=== PATIENT | male | born 1950 | race Caucasian/White ===

== ENCOUNTER 2022-04-18 11:44 | Emergency (ER) | payer MEDICARE, OTHER ==
[~2022-04-18] VITALS: Ht 167.6 cm; Wt 68.0 kg
[2022-04-18] MEDS ORDERED: IBUPROFEN 400MG TABLET PO ONE (12:30)
[2022-04-18] MEDS ORDERED: ACETAMINOPHEN 325MG TABLET PO ONE (12:30)
[2022-04-18 12:48] LABS: BASOPHILS % 1.4 % (0.0-2.0); EOSINOPHILS % 6.7 % (0.0-5.0); HEMATOCRIT. 45.2 % (42.0-52.0); LYMPHOCYTES % 16.1 % (20.0-50.0); MEAN CORPUSCULAR HEMOGLOBIN 28.8 pg (28.0-32.0); MEAN CORPUSCULAR VOLUME 86.5 fL (80.0-94.0); MEAN PLATELET VOLUME 7.6 fl (7.4-10.4); MONOCYTES % 14.9 % (2.0-8.0); NEUTROPHILS % 60.9 % (40.0-76.0); PLATELET 219 x1000/uL (130-400); RED BLOOD CELL COUNT 5.22 mill/uL (4.7-6.1); RED CELL DISTRIBUTION WIDTH 18.6 % (11.6-14.6)
[2022-04-18 12:56] LABS: CHLORIDE 102 mEq/L (98-107)
[2022-04-18] MEDS ORDERED: LORAZEPAM 0.5MG TABLET PO ONE (13:00)
[2022-04-18] MEDS ORDERED: LORA-249 MT (14:32)
[2022-04-18] MEDS ORDERED: AMPH20TA3 MT ×2 (14:44→15:18)
[2022-04-18 15:42] VITALS: BP 134/78
== END 2022-04-18 15:46 | disposition home or self-care (01) ==
LOC: ER 11:44
DX: R06.00 Dyspnea, unspecified (principal); R51.9 Headache, unspecified; R10.9 Unspecified abdominal pain; F13.20 Sedative, hypnotic or anxiolytic dependence, uncomplicated; F11.90 Opioid use, unspecified, uncomplicated; F41.9 Anxiety disorder, unspecified; E78.00 Pure hypercholesterolemia, unspecified; I10 Essential (primary) hypertension; I25.2 Old myocardial infarction; Z95.1 Presence of aortocoronary bypass graft; Z95.2 Presence of prosthetic heart valve; Z59.00 Homelessness unspecified
CPT/HCPCS: 36415; 80048; 85025; 93005; 99285